=== PATIENT | female | born 1945 | race Caucasian/White ===

== ENCOUNTER 2021-05-06 07:58 | Inpatient (IN) | payer MEDICARE, OTHER ==
[~2021-05-06] VITALS: Ht 160 cm; Wt 54.4 kg
[2021-05-06 08:15] VITALS: BP 131/67
--- NOTE | 2021-05-06 08:15 | NUR ---
GPS/RN ADMITTING ORDERS FROM DR MERRITT RECEIVED AND CARRIED OUT
[2021-05-06 08:30] VITALS: BP 131/67
[2021-05-06] MEDS ORDERED: MAG HYDROX/AL HYDROX/SIMETH 30 ML UDC PO PRN (08:30)
[2021-05-06] MEDS ORDERED: BLOOD SUGAR DIAGNOSTIC 1 EACH STRIP IN ONE (08:30)
[2021-05-06] MEDS ORDERED: MAGNESIUM HYDROXIDE 30 ML UDC PO PRN (08:30)
--- NOTE | 2021-05-06 09:00 | NUR ---
GPS/RN OANH MANAGER SCHEDULING MADE AWARE OF ADMISSION
[2021-05-06] MEDS ORDERED: DEXTROSE 50%-WATER 50 ML DISP.SYRIN IV PRN (09:30)
[2021-05-06] MEDS ORDERED: ALEN70TA3 PO (09:54)
[2021-05-06] MEDS ORDERED: OMEP20TA20 PO (09:54)
[2021-05-06] MEDS ORDERED: CLOP75TA15 PO (09:54)
[2021-05-06] MEDS ORDERED: LEVO25TA7 PO (09:54)
[2021-05-06] MEDS ORDERED: METF-440 PO (09:54)
[2021-05-06] MEDS ORDERED: AMIT50TA17 PO (09:54)
[2021-05-06] MEDS ORDERED: PREG75CA PO (09:54)
[2021-05-06] MEDS ORDERED: FAMO-131 PO (09:54)
[2021-05-06] MEDS ORDERED: METO50TA7 PO (09:54)
[2021-05-06] MEDS ORDERED: ZOLP5TAB2 PO (09:54)
[2021-05-06] MEDS ORDERED: ATOR80TA PO (09:54)
[2021-05-06] MEDS ORDERED: BENA40TA67 PO (09:54)
[2021-05-06] MEDS: BLOOD SUGAR DIAGNOSTIC 1 EACH STRIP IN SCH ×3 (12:29→22:05)
[2021-05-06] MEDS: INSULIN REGULAR, HUMAN 100 UNIT/ML 3 ML VIAL SQ PRN (12:48)
--- NOTE | 2021-05-06 13:06 | NUR ---
RN-ADMISSION NOTES ADMITTED 76 YEARS OLD FEMALE PATIENT FROM [facility] . PATIENT ON 5150 HOLD FOR DTS AND GD ADULT. UPON FACE TO FACE ASSESSMENT, PATIENT A/O X3 ,AMBULATORY STEADY GAIT WITH DEPRESSED MOOD,CALM AND COOPERATIVE. PATIENT DENIES SI/HI DURING FACE TO FACE INTERVIEW. STATED" I DID STUPID THINGS THAT I REGRET". PATIENT WAS ORIENTED IN THE UNIT AND UNIT POLICIES. PATIENT'S RIGHT AND MEDICATION BOOKLET WAS GIVEN TO THE PATIENT . DAUGHTER ( VINCENT [phone] ) MADE AWARE OF THE ADMISSION. DR. ADAIR ( COVERING FOR DR. MERRITT ) PSYCHIATRIST MADE AWARE WITH ORDERS. NOEL HUGO ( BOAT PAINTER) ALSO SEEN THE PATIENT AND DID RECONCILED PATIENT MEDICATION. CONTRABAND AND SKIN ASSESSMENT DONE.WILL CONT.MONITORING FOR SAFETY AND BEHAVIOR.
[2021-05-06 14:21] LABS: CALCIUM, SERUM 9.1 mg/dL (8.5-10.1); CREATININE 0.8 mg/dL (0.6-1.3); POTASSIUM 3.5 mmol/L (3.5-5.1)
[2021-05-06 16:00] VITALS: BP 137/73
[2021-05-06] MEDS: ACETAMINOPHEN 325 MG TABLET PO PRN (19:41)
[2021-05-06 20:01] VITALS: BP 161/92
[2021-05-06] MEDS: ESCITALOPRAM OXALATE (10 MG) 10 MG TABLET PO SCH (21:14)
[2021-05-06] MEDS ORDERED: AMITRIPTYLINE HCL 50 MG TABLET PO SCH (22:00)
[2021-05-06] MEDS: ATORVASTATIN 40 MG TABLET PO SCH (22:04)
[2021-05-06 22:20] VITALS: BP 137/72
[2021-05-06] MEDS: TEMAZEPAM 7.5 MG CAPSULE PO PRN (23:48)
--- NOTE | 2021-05-06 23:50 | NUR ---
RN NOTES : INSOMNIA PT.C/O UNABLE TO SLEEP , RESTORIL 7.5 MG PO PRN GIVEN PER PT. REQUEST, WILL CONTINUE TO MONITOR.
[2021-05-07] MEDS: BLOOD SUGAR DIAGNOSTIC 1 EACH STRIP IN SCH ×4 (07:06→21:49)
[2021-05-07 08:00] VITALS: BP 150/70
[2021-05-07 08:26] LABS: BASOPHILS % (AUTO) 0.6 % (0.0-2.0); HEMATOCRIT 32 % (33-45); HEMOGLOBIN 10.7 g/dL (11.5-14.8); LYMPHOCYTES # (AUTO) 1.5 K/uL (0.8-4.8); LYMPHOCYTES % (AUTO) 27.5 % (20.0-44.0); MEAN CORPUSCULAR HGB CONC 34 g/dl (31.0-36.0); MEAN CORPUSCULAR VOLUME 95 fL (82-100); MONOCYTES # (AUTO) 0.6 K/uL (0.1-1.30); MONOCYTES % (AUTO) 10.3 % (2.0-12.0); NEUTROPHILS # (AUTO) 3.1 K/uL (1.8-8.9); NEUTROPHILS % (AUTO) 57.6 % (43.0-81.0); PLATELET COUNT (AUTO) 333 K/uL (150-450); RED BLOOD CELL COUNT(AUTO) 3.33 MIL/uL (4.0-5.2); WHITE BLOOD COUNT (AUTO) 5.4 K/uL (4.3-11.0)
[2021-05-07] MEDS: METFORMIN 500 MG TABLET PO SCH (08:40)
[2021-05-07] MEDS: FAMOTIDINE (20 MG) 20 MG TABLET PO SCH (08:40)
[2021-05-07] MEDS: LEVOTHYROXINE SODIUM 25 MCG TABLET PO SCH (08:41)
[2021-05-07] MEDS: METOPROLOL SUCCINATE 50 MG TAB.SR.24H PO SCH (08:41)
[2021-05-07] MEDS: CLOPIDOGREL BISULFATE 75 MG TABLET PO SCH (08:41)
[2021-05-07] MEDS: BENAZEPRIL HCL 10 MG TABLET PO SCH (08:41)
[2021-05-07] MEDS ORDERED: Medication Not On Formulary EA (Pregabalin (Lyrica) 75 MG) PO SCH (09:00)
[2021-05-07] MEDS: ACETAMINOPHEN 325 MG TABLET PO PRN (09:30)
[2021-05-07 10:17] LABS: THYROID STIMULATING HORMONE 4.32 uIU/mL (0.358-3.74)
[2021-05-07 10:38] LABS: ALBUMIN 2.8 g/dL (3.4-5.0); BILIRUBIN,TOTAL 0.4 mg/dL (0.2-1.0); CALCIUM, SERUM 8.7 mg/dL (8.5-10.1); CREATININE 0.8 mg/dL (0.6-1.3); MAGNESIUM 1.9 mg/dL (1.8-2.4); PHOSPHORUS 3.4 mg/dL (2.5-4.9); POTASSIUM 3.6 mmol/L (3.5-5.1); TOTAL PROTEIN, SERUM 6.4 g/dL (6.4-8.2)
[2021-05-07 13:33] LABS: MAGNESIUM 1.9 mg/dL (1.8-2.4); PHOSPHORUS 3.5 mg/dL (2.5-4.9)
[2021-05-07 16:00] VITALS: BP 160/72
[2021-05-07 20:00] VITALS: BP 148/71
[2021-05-07] MEDS: ATORVASTATIN 40 MG TABLET PO SCH (21:28)
[2021-05-07] MEDS: ESCITALOPRAM OXALATE (10 MG) 10 MG TABLET PO SCH (21:44)
[2021-05-07] MEDS: INSULIN REGULAR, HUMAN 100 UNIT/ML 3 ML VIAL SQ PRN (21:48)
[2021-05-07] MEDS: TEMAZEPAM 7.5 MG CAPSULE PO PRN (23:01)
[2021-05-08] MEDS: clonazePAM 0.5 MG TABLET PO PRN (00:30)
[2021-05-08] MEDS: BLOOD SUGAR DIAGNOSTIC 1 EACH STRIP IN SCH ×4 (07:43→21:47)
[2021-05-08 08:00] VITALS: BP 155/87
[2021-05-08] MEDS: METOPROLOL SUCCINATE 50 MG TAB.SR.24H PO SCH (08:31)
[2021-05-08] MEDS: FAMOTIDINE (20 MG) 20 MG TABLET PO SCH (08:31)
[2021-05-08] MEDS: CLOPIDOGREL BISULFATE 75 MG TABLET PO SCH (08:31)
[2021-05-08] MEDS: LEVOTHYROXINE SODIUM 25 MCG TABLET PO SCH (08:31)
[2021-05-08] MEDS: METFORMIN 500 MG TABLET PO SCH (08:32)
[2021-05-08] MEDS: BENAZEPRIL HCL 10 MG TABLET PO SCH (08:32)
[2021-05-08 16:19] VITALS: BP 159/74
--- NOTE | 2021-05-08 16:25 | NUR ---
Point of Contact: DALIA called Akbar Salmeron [phone] to establish point of contact and gather collateral information. Akbar stated she is are aware of the LPS hold and will be involved in the pt.'s D/C planning.
--- NOTE | 2021-05-08 16:25 | NUR ---
Intiial D/C plan: The pt. currently lives alone w/ pat time caregiver [place] [facility] [facility] [address] [phone]] and pt. states she would like to return there once ready for discharge. Pt. states she is moving to [place] within a week. Per pt.'s daughter, Akbar [phone] stated she would like the pt. to be discharged to home when stable. Pt. states she has a caregiver, Galina and her primary care physician is Dr. Alfred and pt. declined to provide their contact information. SW will continue to collaborate with IDT to ensure a safe & proper D/C planning.
[2021-05-08] MEDS: ATORVASTATIN 40 MG TABLET PO SCH (21:08)
[2021-05-08] MEDS: ESCITALOPRAM OXALATE (10 MG) 10 MG TABLET PO SCH (21:08)
[2021-05-08] MEDS: INSULIN REGULAR, HUMAN 100 UNIT/ML 3 ML VIAL SQ PRN (21:45)
--- NOTE | 2021-05-08 21:45 | NUR ---
RN NOTE: INSULIN REFUSAL ACCUCHECK 157. PT REFUSED 2 UNITS SLIDING SCALE INSULIN. ATTEMPTED TO EDUCATE PT RE IMPORTANCE OF BLOOD SUGAR TREATMENT. PT CONT'D TO REFUSE X 3. WILL CONT TO MONITOR FOR S/SX OF HYPERGLYCEMIA
[2021-05-08] MEDS: TEMAZEPAM 7.5 MG CAPSULE PO PRN (22:31)
--- NOTE | 2021-05-08 22:31 | NUR ---
RN NOTE: INSOMNIA PT C/O INSOMNIA. REQUESTING SLEEP AIDE. MEDICATED WITH RESTORIL 7.5MG PO PRN. WILL CONT TO MONITOR EFFECTIVENESS OF PRN MEDICATION AND NEED FOR FURTHER TREATMENT.
[2021-05-09] MEDS: BLOOD SUGAR DIAGNOSTIC 1 EACH STRIP IN SCH ×2 (07:56→11:40)
[2021-05-09 08:00] VITALS: BP 165/79
[2021-05-09] MEDS: METFORMIN 500 MG TABLET PO SCH (08:13)
[2021-05-09] MEDS: LEVOTHYROXINE SODIUM 25 MCG TABLET PO SCH (08:13)
[2021-05-09] MEDS: CLOPIDOGREL BISULFATE 75 MG TABLET PO SCH (08:13)
[2021-05-09] MEDS: FAMOTIDINE (20 MG) 20 MG TABLET PO SCH (08:13)
[2021-05-09] MEDS: METOPROLOL SUCCINATE 50 MG TAB.SR.24H PO SCH (08:13)
[2021-05-09] MEDS: BENAZEPRIL HCL 10 MG TABLET PO SCH (09:03)
--- NOTE | 2021-05-09 12:08 | NUR ---
RN-CO:DR KAUR ORDERED TO CHANGE SLIDING SCALE FROM ACHS TO BID.
[2021-05-09] MEDS ORDERED: DEXTROSE 50%-WATER 50 ML DISP.SYRIN IV PRN (12:30)
[2021-05-09] MEDS ORDERED: INSULIN REGULAR, HUMAN 100 UNIT/ML 3 ML VIAL SQ PRN (12:30)
[2021-05-09 16:00] VITALS: BP 162/70
[2021-05-09] MEDS: clonazePAM 0.5 MG TABLET PO PRN (16:23)
[2021-05-09 20:00] VITALS: BP 154/78
[2021-05-09 20:22] VITALS: BP 154/78
[2021-05-09] MEDS: ESCITALOPRAM OXALATE (10 MG) 10 MG TABLET PO SCH (21:28)
[2021-05-09] MEDS: ATORVASTATIN 40 MG TABLET PO SCH (21:28)
[2021-05-09] MEDS: TEMAZEPAM 7.5 MG CAPSULE PO PRN (22:36)
--- NOTE | 2021-05-09 22:38 | NUR ---
RN NOTE: INSOMNIA PATIENT VERBALIZED THAT SHE IS UNABLE TO SLEEP & REQUESTED TO TAKE SLEEPING MEDICINE. PRN RESTORIL 7.5 MG 1 CAP PO ADMINISTERED. WILL CONTINUE TO MONITOR
[2021-05-10] MEDS ORDERED: ALENDRONATE 70 MG TABLET PO SCH (07:30)
[2021-05-10] MEDS: clonazePAM 0.5 MG TABLET PO PRN (08:49)
[2021-05-10] MEDS: LEVOTHYROXINE SODIUM 25 MCG TABLET PO SCH (08:49)
[2021-05-10] MEDS: FAMOTIDINE (20 MG) 20 MG TABLET PO SCH (08:49)
[2021-05-10] MEDS: METFORMIN 500 MG TABLET PO SCH (08:49)
[2021-05-10] MEDS: METOPROLOL SUCCINATE 50 MG TAB.SR.24H PO SCH (08:49)
[2021-05-10] MEDS: BLOOD SUGAR DIAGNOSTIC 1 EACH STRIP IN SCH ×2 (08:50→17:32)
[2021-05-10] MEDS: BENAZEPRIL HCL 10 MG TABLET PO SCH (08:50)
[2021-05-10] MEDS: CLOPIDOGREL BISULFATE 75 MG TABLET PO SCH (08:52)
[2021-05-10 09:04] VITALS: BP 157/77
--- NOTE | 2021-05-10 16:22 | NUR ---
Family contact: SW contacted pts daughter daughter, Akbar [phone] and informed her that there is not discharge date from the doctor yet. SW will keep pts daughter updated about pts treatment and discharge date.
[2021-05-10 16:30] VITALS: BP 150/69
[2021-05-10 20:00] VITALS: BP 157/75
[2021-05-10 20:20] VITALS: BP 157/75
[2021-05-10] MEDS: ESCITALOPRAM OXALATE (10 MG) 10 MG TABLET PO SCH (21:32)
[2021-05-10] MEDS: ATORVASTATIN 40 MG TABLET PO SCH (21:32)
[2021-05-10] MEDS: TEMAZEPAM 7.5 MG CAPSULE PO PRN (22:13)
--- NOTE | 2021-05-10 22:15 | NUR ---
RN NOTES DAIN ASKED FOR SLEEPING PILLS- RESTORIL 7.5MG PO GIVEN ORDERED
[2021-05-11 08:00] VITALS: BP 140/72
[2021-05-11] MEDS: BLOOD SUGAR DIAGNOSTIC 1 EACH STRIP IN SCH ×2 (08:31→17:21)
[2021-05-11] MEDS: METFORMIN 500 MG TABLET PO SCH (08:31)
[2021-05-11] MEDS: LEVOTHYROXINE SODIUM 25 MCG TABLET PO SCH (08:31)
[2021-05-11] MEDS: CLOPIDOGREL BISULFATE 75 MG TABLET PO SCH (08:31)
[2021-05-11] MEDS: BENAZEPRIL HCL 10 MG TABLET PO SCH (08:32)
[2021-05-11] MEDS: FAMOTIDINE (20 MG) 20 MG TABLET PO SCH (08:32)
[2021-05-11] MEDS: METOPROLOL SUCCINATE 50 MG TAB.SR.24H PO SCH (08:32)
--- NOTE | 2021-05-11 14:35 | NUR ---
Probable cause hearing: Pts 5250 hold was upheld on the grounds of danger to self and gravely disabled.
[2021-05-11 16:00] VITALS: BP 158/61
[2021-05-11 20:00] VITALS: BP 111/67
[2021-05-11] MEDS: ATORVASTATIN 40 MG TABLET PO SCH (21:35)
[2021-05-11] MEDS: ESCITALOPRAM OXALATE (10 MG) 10 MG TABLET PO SCH (21:35)
[2021-05-11] MEDS: TEMAZEPAM 7.5 MG CAPSULE PO PRN (21:36)
--- NOTE | 2021-05-11 21:36 | NUR ---
GPS RN NOTES WANTS TO SLEEP EARLY,RESTORIL 7.5 MG PO GIVEN PER PATIENT REQUEST.
[2021-05-12 08:00] VITALS: BP 155/74
[2021-05-12] MEDS: METFORMIN 500 MG TABLET PO SCH (08:00)
[2021-05-12] MEDS: FAMOTIDINE (20 MG) 20 MG TABLET PO SCH (08:00)
[2021-05-12] MEDS: CLOPIDOGREL BISULFATE 75 MG TABLET PO SCH (08:00)
[2021-05-12] MEDS: LEVOTHYROXINE SODIUM 25 MCG TABLET PO SCH (08:00)
[2021-05-12] MEDS: BLOOD SUGAR DIAGNOSTIC 1 EACH STRIP IN SCH ×2 (08:01→17:05)
[2021-05-12] MEDS: BENAZEPRIL HCL 10 MG TABLET PO SCH (08:01)
[2021-05-12] MEDS: METOPROLOL SUCCINATE 50 MG TAB.SR.24H PO SCH (08:01)
--- NOTE | 2021-05-12 09:02 | NUR ---
Family contact: DALIA called Felipehelena Jaron [phone] pts daughter and informed her that pt will be discharged tomorrow at 1. Pts daughter reports that she will pick pt up upon discharge.
--- NOTE | 2021-05-12 14:42 | NUR ---
Home Health Referral: DALIA faxed home health referral to [facility] to fax #[phone].
[2021-05-12 16:00] VITALS: BP 129/67
[2021-05-12 19:58] VITALS: BP 159/61
[2021-05-12 20:05] VITALS: BP 159/61
[2021-05-12] MEDS: ATORVASTATIN 40 MG TABLET PO SCH (21:05)
[2021-05-12] MEDS: ESCITALOPRAM OXALATE (10 MG) 10 MG TABLET PO SCH (21:05)
[2021-05-12] MEDS: TEMAZEPAM 7.5 MG CAPSULE PO PRN (21:33)
--- NOTE | 2021-05-12 21:34 | NUR ---
RN NOTE: INSOMNIA PATIENT VERBALIZED THAT SHE IS UNABLE TO SLEEP & REQUESTED TO TAKE SLEEPING MEDICINE AT THIS TIME. PRN RESTORIL 7.5 MG 1 CAP PO ADMINISTERED. WILL CONTINUE TO MONITOR
[2021-05-13 08:00] VITALS: BP 151/88
[2021-05-13] MEDS: BLOOD SUGAR DIAGNOSTIC 1 EACH STRIP IN SCH (08:20)
[2021-05-13] MEDS: METOPROLOL SUCCINATE 50 MG TAB.SR.24H PO SCH (08:21)
[2021-05-13] MEDS: CLOPIDOGREL BISULFATE 75 MG TABLET PO SCH (08:21)
[2021-05-13] MEDS: METFORMIN 500 MG TABLET PO SCH (08:21)
[2021-05-13 08:22] VITALS: BP 151/88
[2021-05-13] MEDS: FAMOTIDINE (20 MG) 20 MG TABLET PO SCH (08:22)
[2021-05-13] MEDS: LEVOTHYROXINE SODIUM 25 MCG TABLET PO SCH (08:22)
[2021-05-13] MEDS: BENAZEPRIL HCL 10 MG TABLET PO SCH (08:22)
--- NOTE | 2021-05-13 08:52 | NUR ---
Dr. Moon gave an order to D/C hold and D/C home and to follow p with psych and medical doctors. Pt. without distress, denies suicidal and homicidal. Addendum: 05/13/21 at 0910 by HONORIO NIEVES RN Pt. is for discharge with Homehealth
--- NOTE | 2021-05-13 10:28 | NUR ---
Akbar Avila made aware of the discharge and will come at 1:00 pm to cotton picker the pt. Addendum: 05/13/21 at 1146 by HONORIO NIEVES RN Rabia
--- NOTE | 2021-05-13 11:40 | NUR ---
Dr. Sterling made aware of the discharge and provided a prescriptions on meds to continue at home.
--- NOTE | 2021-05-13 13:20 | NUR ---
Pt. left the unit via a wheelchair and wheeled by staff to the lobby. Pt. being picked up by daughter Akbar BustamanteMaddi Pt. and daughter was instructed on meds to continue at home and verbalizes understanding and advised to follow up with her psych and medical doctors. V/S taken: BP 143/73, WV 66, RR 18, temp 97.9 and oxygen sat 95%.
== END 2021-05-13 13:20 | disposition home health service (06) | DRG 885 ==
LOC: GPS 07:58
PROVIDERS: ADMIT Nurse Practitioner Acute Care
DX: F32.2 Major depressive disorder, single episode, severe without psychotic features (principal); R45.851 Suicidal ideations; E44.0 Moderate protein-calorie malnutrition; E11.9 Type 2 diabetes mellitus without complications; I10 Essential (primary) hypertension; Z91.5 Personal history of self-harm; D64.9 Anemia, unspecified
CPT/HCPCS: 36415; 80048-TC; 80053-TC; 80061-TC; 82962-TC; 83735-TC; 84100-TC; 84443-TC; 85025-TC; 87081-TC; J1815